=== PATIENT | male | born 1945 | race Caucasian/White ===

== ENCOUNTER 2022-11-10 09:19 | Day surgery (SDC) | payer MEDICARE, OTHER ==
[~2022-11-10] VITALS: Ht 182.9 cm; Wt 80.7 kg
--- NOTE | 2022-11-10 10:42 | NUR ---
Patient up to Ambulate independently. Gait steady. History, Chart, Medications and Allergies reviewed before start of procedure.Lungs clear T/O to Auscultation. Patient confirms NPO status and agrees with scheduled surgery. Pre-Op teaching done. Pt verbalizes understanding. Patient States Post-Procedure ride home has been arranged. 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
--- NOTE | 2022-11-10 11:11 | NUR ---
11/10/22 Michael Uriostegui HISTORY, CHART, MEDICATIONS AND ALLERGIES REVIEWED BEFORE START OF PROCEDURE. PATIENT CONFIRMS NPO STATUS AND AGREES WITH SCHEDULED PROCEDURE. 3-LEAD EKG REVIEWED WITH PHYSICIAN PRIOR TO START OF PROCEDURE. MONITOR INTACT WITH CONTINUOUS PULSE OXIMETRY,CAPNOGRAPHY, 3-LEAD EKG, INTERMITTENT BP. SUPPLEMENTAL O2 TO BE TITRATED THROUGHOUT PROCEDURE TO MAINTAIN O2 SATURATION ABOVE 90%. PATIENT DETERMINED TO BE ASA APPROPRIATE FOR PROPOFOL SEDATION PRIOR TO START OF PROCEDURE BY
[2022-11-10] MEDS ORDERED: LOSARTAN POTASS25 M2 PO (11:12)
[2022-11-10] MEDS ORDERED: METOPROLOL TART25 MG PO (11:12)
[2022-11-10] MEDS ORDERED: Triamcinolone A15 G2 TOP (11:12)
[2022-11-10] MEDS ORDERED: XARELTO20 M1 PO (11:13)
[2022-11-10] MEDS ORDERED: ATOR40TA PO (11:13)
[2022-11-10] MEDS ORDERED: PLAVIX75 MG PO (11:13)
--- NOTE | 2022-11-10 11:38 | NUR ---
REPORT RECEIVED FROM [facility]. VSS AND CONSISTENT WITH PT BASELINE. PT ABLE TO REPOSITION SELF IN BED. PT REQUESTING PO FLUIDS AND TOLERATING THEM WELL. PT DENIES ANY PAIN OR DISCOMFORT AT THIS TIME.
--- NOTE | 2022-11-10 12:14 | NUR ---
Patient up to Ambulate independently. Gait steady. Discharge instructions reviewed with patient. Patient verbalizes understanding. Copy given to patient to take home. Patient States Post-Procedure ride home has been arranged. Discharged via wheelchair to private car for ride home. PT BELONGINGS RETURNED TO PT.
== END 2022-11-10 23:16 | disposition home or self-care (01) ==
LOC: ORSCMMR 09:19 → ORD 10:30 → ORSCMMR 23:16
PROVIDERS: Internal Medicine Gastroenterology
PROC: 0DBN8ZX Excision of Sigmoid Colon, Via Natural or Artificial Opening Endoscopic, Diagnostic (ICD-10-PCS; principal; 2022-11-10 10:30)
DX: Z12.11 Encounter for screening for malignant neoplasm of colon (principal); Z86.010 Personal history of colon polyps; D12.5 Benign neoplasm of sigmoid colon; I73.9 Peripheral vascular disease, unspecified; I10 Essential (primary) hypertension; E78.00 Pure hypercholesterolemia, unspecified; Z79.01 Long term (current) use of anticoagulants; Z79.02 Long term (current) use of antithrombotics/antiplatelets; Z79.899 Other long term (current) drug therapy
CPT/HCPCS: 88305; J2704; J7120

== ENCOUNTER 2022-12-13 06:45 | Day surgery (SDC) | payer MEDICARE, OTHER ==
[~2022-12-13] VITALS: Ht 182.9 cm; Wt 83.7 kg
[~2022-12-13 06:45] MED LIST: ATOR40TA PO; LOSARTAN POTASS25 M2 PO; METOPROLOL TART25 MG PO; PLAVIX75 MG PO; Triamcinolone A15 G2 TOP; XARELTO20 M1 PO
== END 2022-12-13 22:45 | disposition home or self-care (01) ==
LOC: ORSCMMR 06:45 → ORD 08:30 → ORSCMMR 08:30
PROVIDERS: Surgery
PROC: 0YU50JZ Supplement Right Inguinal Region with Synthetic Substitute, Open Approach (ICD-10-PCS; principal; 2022-12-13 08:30)
PROC: 3E0M05Z Introduction of Adhesion Barrier into Peritoneal Cavity, Open Approach (ICD-10-PCS; principal; 2022-12-13 08:30)
DX: K40.90 Unilateral inguinal hernia, without obstruction or gangrene, not specified as recurrent (principal); D17.6 Benign lipomatous neoplasm of spermatic cord; I10 Essential (primary) hypertension; I25.10 Atherosclerotic heart disease of native coronary artery without angina pectoris; I25.2 Old myocardial infarction; Z79.02 Long term (current) use of antithrombotics/antiplatelets; Z79.01 Long term (current) use of anticoagulants; Z79.899 Other long term (current) drug therapy
CPT/HCPCS: A9270; C1781; J0690; J1100; J2405; J2704; J2795; J3010; J7120